=== PATIENT | male | born 1955 | race Caucasian/White ===

== ENCOUNTER 2022-10-03 07:00 | Outpatient (CLI) | payer MEDICARE, BC ==
--- NOTE | 2022-10-03 09:46 | XRAY Report ---
PROCEDURE: Ankle 3 View RT INDICATIONS: RIGHT ANKLE PAIN TECHNIQUE: 4 views of the ankle were acquired. COMPARISON: None FINDINGS: Bones: There is a minimally displaced fracture seen of the distal tibia. No intraventricular involvem ent can be seen. No associated fibular fracture can be seen. The talar dome demonstrates an unremark able appearance. No suspicious lytic or blastic lesions are seen. Age-appropriate degenerative changes are seen. A plantar calcaneal spur is incidentally noted. Soft tissues: No tibiotalar joint effusion. Achilles tendon appears normal. Atherosclerotic calcif ication is seen. IMPRESSION: Minimally displaced distal tibial fracture. Reviewed by: Stef Zarate MD on 10/03/2022 8:45 AM [facility] Approved by: Stef Zarate MD on 10/03/2022 8:45 AM [facility] Station ID: [id number]
== END 2022-10-03 23:59 | disposition home or self-care (01) ==
LOC: DI.S 07:00
PROVIDERS: ATTEND Physician Assistant Medical
DX: S82.301A Unspecified fracture of lower end of right tibia, initial encounter for closed fracture (principal)